=== PATIENT | female | born 1960 | race African-American/Black ===

== ENCOUNTER 2018-05-20 05:48 | Inpatient (IN) | payer BC ==
[2018-05-18 18:35] VITALS: Ht 181.6 cm; Wt 109.1 kg
[2018-05-20] VITALS (25 sets, daily range): BP systolic 109–149; BP diastolic 56–97; PULSE 75–102; RESP 11–23
[~2018-05-20] VITALS: Ht 181.6 cm; Wt 109.1 kg
[2018-05-20] MEDS ORDERED: ACETAMINOPHEN 500 MG TAB PO ONE (06:00)
[2018-05-20] MEDS ORDERED: LANSOPRAZOLE 30 MG CAP PO ONE (06:00)
[2018-05-20] MEDS ORDERED: TRANEXAMIC ACID 1GM/100ML(PMX) 100 ML INTRA-OP X1 IVPB ONE (06:00)
[2018-05-20] MEDS ORDERED: LACTATED RINGER'S 1,000 ML IV* SCH (06:00)
[2018-05-20] MEDS ORDERED: ACETAMINOPHEN 1000MG/100ML IV 100 ML IVPB ONE (06:00)
[2018-05-20] MEDS ORDERED: oxyCODONE (CR) 10 MG TAB [oxyCONTIN] PO ONE (06:00)
[2018-05-20] MEDS ORDERED: TRANEXAMIC ACID 1GM/100ML(PMX) 100 ML PRE-OP X1 IVPB ONE (06:00)
[2018-05-20] MEDS ORDERED: ONDANSETRON 4 MG INJ IV ONE (06:00)
[2018-05-20] MEDS ORDERED: DEXAMETHASONE 4 MG/ML 1 ML INJ IV ONE (06:00)
[2018-05-20] MEDS ORDERED: VANCOMYCIN 1 GM 250 ML IVPB ONE (06:19)
--- NOTE | 2018-05-20 06:24 | HPN ---
Date/Time of Note Date/Time of Note DATE: 05/20/18 TIME: 06:24 Interval H&P Admission Note Pt. seen H&P reviewed: No system changes LYUDMILA PAIGE MD May 20, 2018 06:24
[2018-05-20] MEDS ORDERED: HYDR25TA6 PO (06:55)
[2018-05-20] MEDS ORDERED: BACITRACIN 50000 UNITS INJ ONE (07:03)
[2018-05-20] MEDS ORDERED: POLYMYXIN B 500000 UNIT INJ ONE (07:05)
--- NOTE | 2018-05-20 07:21 | PREAC ---
Date/Time of Note Date/Time of Note DATE: 05/20/18 TIME: 07:20 Anesthesia Eval and Record Evaluation Time Pre-Procedure Interview DATE: 05/20/18 TIME: 07:20 Age 57 Sex female NPO: 8 hrs Preoperative diagnosis RIGHT HIP PRIMARY OSTEOARTHRITIS Planned procedure RIGHT GABY Past Medical History Past Medical History: Includes Cardio: HTN GI: Obesity Surgery & Anesthesia Issues No known issue Meds Anticoagulation: No Beta Dallin within 24 hr: No Reason Beta Dallin not given: Pt. not on B-Dallin Reported Medications Hydrochlorothiazide* (Hydrochlorothiazide*) 25 Mg Tab, 25 MG PO DAILY, #30 TAB 05/20/18 Current Medications Lactated Ringer's 1,000 ml @ 125 mls/hr Q8H IV* Last administered on 05/20/18at 06:31; Admin Dose 125 MLS/HR; Start 05/20/18 at 06:00; Stop 05/20/18 at 13:59 Ropivacaine/ Morphine Sulfate/ Clonidine/ Epinephrine/ Ketorolac Tromethamine/ Vancomycin HCl/ Sodium Chloride INTRA-OP INJ ; Start 05/20/18 at 13:00 Vancomycin HCl 250 ml @ 125 mls/hr ONCE ONCE IVPB Last administered on 05/20/18at 06:31; Admin Dose 125 MLS/HR; Start 05/20/18 at 06:19; Stop 05/20/18 at 08:18 Meds reviewed: Yes Allergies Coded Allergies: Penicillins (Verified Allergy, Unknown, 05/19/18) Allergies Reviewed: Yes Labs/Studies Labs Reviewed: Reviewed by anesthesiologist test: N/A Studies: ECG (SR @ 63 BPM), CXR (NAPD) Pre-procedure Exam Last vitals Vital Signs Date Temp Pulse Resp B/P (MAP) Pulse Ox O2 O2 Flow FiO2 Time Delivery Rate 05/20/18 96.8 83 18 144/97 98 Room Air 06:44 (113) Airway: Adequate mouth opening, Adequate thyromental dist Mallampati: Mallampati II Teeth: Normal Lung: Normal Heart: Normal ASA Physical Status ASA physical status: 2 Emergency: None Planned Anesthetic General/MAC: ETT Neuraxial: Spinal Planned Pain Management Parenteral pain med Pre-operative Attestations Prior to commencing anesthesia and surgery, the patient was re-evaluated, there was verification of: *The patient's identity *The results of appropriate recent lab work and preoperative vital signs *The above evaluation not changing prior to induction *Anesthetic plan, risk benefits, alternative and complications discussed with patient/family; questions answered; patient/family understands, accepts and wishes to proceed. David Alvarez M.D. May 20, 2018 07:21
[2018-05-20] MEDS ORDERED: ROCURONIUM 50 MG INJ ONE (07:23)
[2018-05-20] MEDS ORDERED: PROPOFOL 20 ML ONE (07:23)
[2018-05-20] MEDS ORDERED: GLYCOPYRROLATE 0.4 MG INJ ONE (07:23)
[2018-05-20] MEDS ORDERED: CEFAZOLIN 1 GM INJ ONE (07:23)
[2018-05-20] MEDS ORDERED: DEXAMETHASONE 4 MG/ML 5 ML INJ ONE (07:24)
[2018-05-20] MEDS ORDERED: FENTAnyl 50 MCG/ML VIAL ONE (07:24)
[2018-05-20] MEDS ORDERED: ONDANSETRON 4 MG INJ ONE (07:24)
[2018-05-20] MEDS ORDERED: MIDAZOLAM 1 MG/ML 2 ML INJ ONE (07:24)
[2018-05-20] MEDS ORDERED: morphine SULFATE/PF (10 MG/10 ML) INJ ONE (07:27)
[2018-05-20] MEDS ORDERED: HYDROmorphONE 0.5 MG/0.5 ML SYG IV PRN ×2 (08:30)
[2018-05-20] MEDS ORDERED: NALBUPHINE HCL (10 MG/1 ML) INJ IV PRN (08:30)
[2018-05-20] MEDS ORDERED: NALOXONE (0.4 MG/ML) INJ IV PRN (08:30)
[2018-05-20] MEDS ORDERED: LABETALOL HCL 20MG INJ IV PRN (08:30)
[2018-05-20] MEDS ORDERED: MIDAZOLAM 1 MG/ML 2 ML INJ IV PRN (08:30)
[2018-05-20] MEDS ORDERED: ONDANSETRON 4 MG INJ IV PRN ×2 (08:30)
[2018-05-20] MEDS ORDERED: ALBUTEROL 0.083% (NEB) 2.5 MG/3 ML AMP HHN PRN (08:30)
[2018-05-20] MEDS ORDERED: FENTAnyl 50 MCG/ML VIAL IV PRN ×3 (08:30)
[2018-05-20] MEDS ORDERED: DIPHENHYDRAMINE 50 MG INJ IV PRN ×2 (08:30)
[2018-05-20] MEDS ORDERED: HYDROmorphONE 1 MG/5 ML IV SYRINGE IV PRN ×3 (08:30)
[2018-05-20] MEDS ORDERED: EPHEDrine SULFATE 50 MG/5 ML SYG IV PRN (08:30)
[2018-05-20] MEDS ORDERED: IPRATROPIUM (NEB) 0.5 MG/2.5 ML AMP HHN PRN (08:30)
[2018-05-20] MEDS ORDERED: hydrALAzine 20 MG INJ IV PRN (08:30)
[2018-05-20] MEDS ORDERED: TRIMETHOBENZAMIDE 100 MG/ML VIAL IM PRN ×2 (08:30)
[2018-05-20] MEDS ORDERED: MEPERIDINE 25 MG INJ IV PRN (08:30)
--- NOTE | 2018-05-20 10:17 | SIPON ---
Date/Time of Note Date/Time of Note DATE: 05/20/18 TIME: 10:16 Operative Report Preoperative Diagnosis Right Hip Osteoarthritis Postoperative Diagnosis Same Operation/Procedure Performed Right Total Hip Arthroplasty Surgeon Azucena Paige MD virtual assistant for advertisers Jonn Alejandra Second assist: SUNNI GRUBBS Anesthesia: spinal Estimated blood loss: other Transfusion Required none Specimen bone Grafts/Implants none Complications none AZUCENA PAIGE MD May 20, 2018 10:17
--- NOTE | 2018-05-20 10:26 | OPR ---
Date/Time of Note Date/Time of Note DATE: 05/20/18 TIME: 10:23 Operative Report Free Text/Dictation DATE OF OPERATION: May 20, 2018 PREOPERATIVE DIAGNOSIS: Right hip osteoarthritis. POSTOPERATIVE DIAGNOSIS: Right hip osteoarthritis. PROCEDURES PERFORMED: 1. Right total hip arthroplasty. CPT code 13374. 2. Computer assisted navigational procedure, CPT code 59670. 3. Interpretation of AP Pelvis x-ray. 4. Interpretation of right hip, 2 views. SURGEON: Lyudmila Paige. DISTRICT SUPERVISOR: 1. FRANKIE Bailon 2. Jonn Alejandra. ANESTHESIOLOGIST: Dr. Alvarez ANESTHESIA: Spinal ESTIMATED BLOOD LOSS: 300 mL. COMPLICATIONS: None. SPECIMENS: Resected bone. DISPOSITION: PACU in stable condition. IMPLANT USED: A DePuy Actis size 3 stem, 32/+1 delta ceramic femoral head, 48 mm Pointblank Cup, 32 mm liner COMPLICATIONS: None. DISPOSITION: To PACU in stable condition. INDICATION FOR PROCEDURE: This is an 57 year-old female with endstage osteoarthritis of the right hip who had failed nonoperative management. Risks, benefits, alternatives of surgical intervention were discussed with the patient and informed consent was obtained. The risks of surgery include but are not limited to infection, deep venous thrombosis, pulmonary embolism, leg length discrepancy, fracture, damage to neur ovascular structures requiring repair, loosening of the prosthesis, wear of prosthesis, need for revision surgery, heart attack, stroke, need for blood transfusion, risks associated with anesthesia and even . DESCRIPTION OF PROCEDURE: The patient was met in the preoperative suite and the correct operative site was confirmed and marked. Patient was then brought into operating room. After induction of general anesthesia, the patient was placed in the supine position on the table. The right lower extremity was prepped and draped in the usual sterile fashion. Before starting, a timeout was taken to identify the correct operative site, the patients name and medical record number and to confirm the preoperative antibiotics consisting of 1 gram of IV Ancef, along with 1 gram of tranexamic acid were administered. At this point, an 8 cm incision was made approximately 2 cm lateral and 1 cm distal to the ASIS. The incision was carried down to the fascia. The fascia was then incised. Then, 2 Allis clamps were placed. The interval was then bluntly developed and the tensor fascia cate was then retracted laterally. The lateral circumflex vessels were identified and coagulated. The anterior capsule was then visualized and a capsulotomy was performed. At this point, markings were made for the napkin ring osteotomy of the femoral neck. Using the saw the initial osteotomy was then made and completed with the use of an osteotome. A Rustam was then used to remove the napkin ring and a corkscrew was then placed in the femoral head and the head was then removed. The head was sized to 47 mm. Sequential reaming was begun with a 43 mm reamer, going up to a 47 mm reamer. A trial 48 mm cup was then impacted and the radlink was then used to determine the appropriate anteversion and abduction of the cup. The cup was noted to be in approximately 46 degrees of inclination, and 20 degrees of anteversion. The trial was then removed. The appropriate size cup was then placed and again the radlink was used to determine the inclination and anteversion, and was noted be unchanged. The 32 mm liner was then impacted into place and the final acetabular x-rays were taken which again demonstrated the cup to be in appropriate abduction and anteversion. At this point, the femoral lift was then used and the leg was then placed in external rotation, extension, and adduction. Retractors were placed and the femoral releases were performed using a box osteotome followed by a canal finder. Sequential broaching was begun with a 0 broach going up to a size 3 broach. The trial 3 mm standard offset stem along with a 32/+1 trial head and neck were placed. The hip was then reduced and taken through range of motion, noted to be stable in extension and external rotation of up to 110 degrees. AP x-rays of the pelvis and right hip, 2 view x-rays were taken. The x-rays demonstrated the prosthesis to be in the correct position with equal leg lengths. The trial components were then removed. The appropriate sized components were then placed. The hip was again reduced with unchanged stability and equal leg lengths and no fractures were seen. The hip was again taken through range of motion and noted to be stable to extension and external rotation. The wound was then thoroughly irrigated. The capsule and the fascia were closed using #1 Stratafix. The subcutaneous tissue was closed using 2-0 Vicryl and the skin with 4-0 Monocryl in subcuticular fashion and Steri-Strips were applied. There were no complications. Patient was awakened and taken to postoperative care unit in stable condition. Prior to transfer, the patient was noted to have equal leg lengths and a palpable dorsalis pedis pulse. POSTOPERATIVE CARE: Patient will be weightbearing as tolerated. Patient will work with physical therapy, and receive multimodal pain management.. Patient will receive two additional doses of IV Ancef along with aspirin 81 mg p.o. b.i.d. for 6 weeks. Patient will have SCDs while in the hospital. Upon discharge, patient will follow up in my office within 2 weeks postoperatively. LYUDMILA PAIGE MD May 20, 2018 10:26
[2018-05-20] MEDS ORDERED: HIP PAIN COCKTAIL VANCO INJ SCH ×7 (13:00)
[2018-05-20] MEDS ORDERED: traMADol 50 MG TAB PO PRN (14:00)
[2018-05-20] MEDS: LACTATED RINGER'S 1,000 ML IV SCH ×2 (14:00→16:00)
[2018-05-20] MEDS ORDERED: HYDROCODONE/APAP (5/325) TAB PO PRN (14:00)
[2018-05-20] MEDS ORDERED: KETOROLAC 30 MG INJ IM PRN (14:00)
[2018-05-20] MEDS: ASPIRIN (EC) 81 MG TAB PO SCH ×2 (14:00→21:37)
--- NOTE | 2018-05-20 14:42 | CONS ---
Assessment/Plan Assessment/Plan Assessment/Plan (Daily) Assessment and plan: 57-year-old female status post right hip arthroplasty secondary to end-stage osteoarthritis of the right hip, prior history of hypertension. #Right hip osteoarthritis: Again status post right hip total arthroplasty which occurred earlier today -Continue pain control medications as ordered by primary team, physical therapy, labs -Follow-up post operative recommendations of orthopedic surgery team # HTN -blood pressure stable: -Monitor for now, consider restarting patient's home p.o. hydralazine medication in the next 24 hours He will continue to follow along with you. Consultation Date/Type/Reason Admit Date/Time May 20, 2018 at 05:48 Date/Time of Note DATE: 05/20/18 TIME: 14:40 Hx of Present Illness 57-year-old female past medical history of end-stage osteoarthritis of the right hip, hypertension, who was brought in for elective procedure for right hip replacement. Patient underwent procedure earlier today and is presently out of recovery and on the medical surgical unit. Apparently she had failed outpatient treatment for her end-stage osteoarthritis of her right hip hence the surgery was performed earlier today. Presently denies any upper or lower GI bleeding, nausea vomiting, fever chills, diarrhea constipation, chest pain or shortness of breath. Past Medical History Home Meds Reported Medications Hydrochlorothiazide* (Hydrochlorothiazide*) 25 Mg Tab, 25 MG PO DAILY, #30 TAB 05/20/18 Medications Current Medications Ropivacaine/ Morphine Sulfate/ Clonidine/ Epinephrine/ Ketorolac Tromethamine/ Vancomycin HCl/ Sodium Chloride INTRA-OP INJ ; Start 05/20/18 at 13:00 Hydromorphone HCl (Dilaudid) 0.2 mg PACU PRN IV MILD PAIN 1-3; Start 05/20/18 at 08:30; Stop 05/20/18 at 15:00 Hydromorphone HCl (Dilaudid) 0.4 mg PACU PRN IV MOD PAIN 4-6; Start 05/20/18 at 08:30; Stop 05/20/18 at 15:00 Hydromorphone HCl (Dilaudid) 0.6 mg PACU PRN IV SEVERE PAIN 7-10; Start 05/20/18 at 08:30; Stop 05/20/18 at 15:00 Fentanyl (Sublimaze) 25 mcg PACU ORDER PRN IV MILD PAIN 1-3; Start 05/20/18 at 08:30; Stop 05/20/18 at 15:00 Fentanyl (Sublimaze) 50 mcg PACU ORDER PRN IV MOD PAIN 4-6; Start 05/20/18 at 08:30; Stop 05/20/18 at 15:00 Fentanyl (Sublimaze) 75 mcg PACU ORDER PRN IV SEVERE PAIN 7-10; Start 05/20/18 at 08:30; Stop 05/20/18 at 15:00 Ondansetron HCl (Zofran Inj) 4 mg PACU ORDER PRN IV NAUSEA/VOMITING Last administered on 05/20/18at 12:37; Admin Dose 4 MG; Start 05/20/18 at 08:30; Stop 05/20/18 at 15:00 Trimethobenzamide HCl (Tigan) 200 mg PACU ORDER PRN IM NAUSEA/VOMITING; Start 05/20/18 at 08:30; Stop 05/20/18 at 15:00 Labetalol HCl (Labetalol) 5 mg PACU ORDER PRN IV HIGH BLOOD PRESSURE; Start 05/20/18 at 08:30; Stop 05/20/18 at 15:00 Hydralazine HCl (Apresoline) 5 mg PACU ORDER PRN IV HIGH BLOOD PRESSURE; Start 05/20/18 at 08:30; Stop 05/20/18 at 15:00 Ephedrine Sulfate 5 mg PACU ORDER PRN IV BLOOD PRESSURE SUPPORT; Start 05/20/18 at 08:30; Stop 05/20/18 at 15:00 Albuterol (Proventil 0.083% (Neb)) 2.5 mg PACU ORDER PRN HHN .WHEEZING; Start 05/20/18 at 08:30; Stop 05/20/18 at 15:00 Ipratropium Leslie (Atrovent 0.02% (Neb)) 0.5 mg PACU ORDER PRN HHN .WHEEZING; Start 05/20/18 at 08:30; Stop 05/20/18 at 15:00 Meperidine HCl (Demerol) 25 mg PACU ORDER PRN IV .RIGORS; Start 05/20/18 at 08:30; Stop 05/20/18 at 15:00 Diphenhydramine HCl (Benadryl) 25 mg PACU ORDER PRN IV .PRURITUS; Start 05/20/18 at 08:30; Stop 05/20/18 at 15:00 Midazolam HCl (Versed) 0.5 mg PACU ORDER PRN IV .ANXIETY; Start 05/20/18 at 08:30; Stop 05/20/18 at 15:00 Hydromorphone HCl (Dilaudid) 0.2 mg Q2H PRN IV .PAIN 1-5; Start 05/20/18 at 08:30 Hydromorphone HCl (Dilaudid) 0.4 mg Q2H PRN IV .PAIN 6-10; Start 05/20/18 at 08:30 Diphenhydramine HCl (Benadryl) 25 mg Q4H PRN IV .PRURITUS; Start 05/20/18 at 08:30 Nalbuphine HCl (Nubain) 10 mg Q4H PRN IV .PRURITUS; Start 05/20/18 at 08:30 Ondansetron HCl (Zofran Inj) 4 mg Q6H PRN IV .NAUSEA/VOMITING; Start 05/20/18 at 08:30 Trimethobenzamide HCl (Tigan) 200 mg Q6H PRN IM .NAUSEA/VOMITING; Start 05/20/18 at 08:30 Naloxone HCl (Narcan) 0.2 mg Q2M PRN IV .RESP RATE; Start 05/20/18 at 08:30 Miscellaneous Information (* Miscellaneous Pharmacy Order) DURAMORPH: 0.2 MG SPI... GIVEN NEURAXIAL XX ; Start 05/20/18 at 08:30 Vancomycin HCl 250 ml @ 125 mls/hr Q12 IVPB ; Start 05/20/18 at 13:30; Stop 05/20/18 at 22:59 Aspirin (Halfprin) 81 mg BID PO ; Start 05/20/18 at 14:00 Lactated Ringer's 1,000 ml @ 100 mls/hr Q10H IV ; Start 05/20/18 at 14:00 Acetaminophen/ Hydrocodone Bitart ([place] (5/325)) 2 tab Q6H PRN PO MODERATE PAIN LEVEL 4-6; Start 05/20/18 at 14:00 Ketorolac Tromethamine (Toradol) 30 mg Q6H PRN IM PAIN LEVEL 1-3; Start 05/20/18 at 14:00; Stop 05/23/18 at 13:59 Tramadol HCl (Ultram) 50 mg Q8H PRN PO MODERATE PAIN LEVEL 4-6; Start 05/20/18 at 14:00 Celecoxib (Celebrex) 100 mg TID PO ; Start 05/20/18 at 21:00 Allergies: Coded Allergies: Penicillins (Verified Allergy, Unknown, 05/19/18) Past Surgical History Past Surgical Hx: other (D&C x2) Family History Significant Family History: no pertinent family hx Social History Smoking Status: Current every day smoker ([place]) Exam/Review of Systems Exam Vitals Vital Signs Date Temp Pulse Resp B/P (MAP) Pulse Ox O2 O2 Flow FiO2 Time Delivery Rate 05/20/18 86 15 119/70 100 Nasal 3.0 11:38 (86) Cannula 05/20/18 98.0 10:52 Exam Gen Appearance: Lying in bed HEENT: Normocephalic NECK: supple Cardiovascular: S1, S2 heard Lungs: Clear to auscultation bilaterally Abdomen: No rebound or guarding, nontender, nondistended, soft Extremities: Decreased range of motion right hip Neuro: No focal deficits Medications Medication Current Medications Ropivacaine/ Morphine Sulfate/ Clonidine/ Epinephrine/ Ketorolac Tromethamine/ Vancomycin HCl/ Sodium Chloride INTRA-OP INJ ; Start 05/20/18 at 13:00 Hydromorphone HCl (Dilaudid) 0.2 mg PACU PRN IV MILD PAIN 1-3; Start 05/20/18 at 08:30; Stop 05/20/18 at 15:00 Hydromorphone HCl (Dilaudid) 0.4 mg PACU PRN IV MOD PAIN 4-6; Start 05/20/18 at 08:30; Stop 05/20/18 at 15:00 Hydromorphone HCl (Dilaudid) 0.6 mg PACU PRN IV SEVERE PAIN 7-10; Start 05/20/18 at 08:30; Stop 05/20/18 at 15:00 Fentanyl (Sublimaze) 25 mcg PACU ORDER PRN IV MILD PAIN 1-3; Start 05/20/18 at 08:30; Stop 05/20/18 at 15:00 Fentanyl (Sublimaze) 50 mcg PACU ORDER PRN IV MOD PAIN 4-6; Start 05/20/18 at 08:30; Stop 05/20/18 at 15:00 Fentanyl (Sublimaze) 75 mcg PACU ORDER PRN IV SEVERE PAIN 7-10; Start 05/20/18 at 08:30; Stop 05/20/18 at 15:00 Ondansetron HCl (Zofran Inj) 4 mg PACU ORDER PRN IV NAUSEA/VOMITING Last a dministered on 05/20/18at 12:37; Admin Dose 4 MG; Start 05/20/18 at 08:30; Stop 05/20/18 at 15:00 Trimethobenzamide HCl (Tigan) 200 mg PACU ORDER PRN IM NAUSEA/VOMITING; Start 05/20/18 at 08:30; Stop 05/20/18 at 15:00 Labetalol HCl (Labetalol) 5 mg PACU ORDER PRN IV HIGH BLOOD PRESSURE; Start 05/20/18 at 08:30; Stop 05/20/18 at 15:00 Hydralazine HCl (Apresoline) 5 mg PACU ORDER PRN IV HIGH BLOOD PRESSURE; Start 05/20/18 at 08:30; Stop 05/20/18 at 15:00 Ephedrine Sulfate 5 mg PACU ORDER PRN IV BLOOD PRESSURE SUPPORT; Start 05/20/18 at 08:30; Stop 05/20/18 at 15:00 Albuterol (Proventil 0.083% (Neb)) 2.5 mg PACU ORDER PRN HHN .WHEEZING; Start 05/20/18 at 08:30; Stop 05/20/18 at 15:00 Ipratropium Leslie (Atrovent 0.02% (Neb)) 0.5 mg PACU ORDER PRN HHN .WHEEZING; Start 05/20/18 at 08:30; Stop 05/20/18 at 15:00 Meperidine HCl (Demerol) 25 mg PACU ORDER PRN IV .RIGORS; Start 05/20/18 at 08: 30; Stop 05/20/18 at 15:00 Diphenhydramine HCl (Benadryl) 25 mg PACU ORDER PRN IV .PRURITUS; Start 05/20/18 at 08:30; Stop 05/20/18 at 15:00 Midazolam HCl (Versed) 0.5 mg PACU ORDER PRN IV .ANXIETY; Start 05/20/18 at 08:30; Stop 05/20/18 at 15:00 Hydromorphone HCl (Dilaudid) 0.2 mg Q2H PRN IV .PAIN 1-5; Start 05/20/18 at 08:30 Hydromorphone HCl (Dilaudid) 0.4 mg Q2H PRN IV .PAIN 6-10; Start 05/20/18 at 08:30 Diphenhydramine HCl (Benadryl) 25 mg Q4H PRN IV .PRURITUS; Start 05/20/18 at 08:30 Nalbuphine HCl (Nubain) 10 mg Q4H PRN IV .PRURITUS; Start 05/20/18 at 08:30 Ondansetron HCl (Zofran Inj) 4 mg Q6H PRN IV .NAUSEA/VOMITING; Start 05/20/18 at 08:30 Trimethobenzamide HCl (Tigan) 200 mg Q6H PRN IM .NAUSEA/VOMITING; Start 05/20/18 at 08:30 Naloxone HCl (Narcan) 0.2 mg Q2M PRN IV .RESP RATE; Start 05/20/18 at 08:30 Miscellaneous Information (* Miscellaneous Pharmacy Order) DURAMORPH: 0.2 MG SPI... GIVEN NEURAXIAL XX ; Start 05/20/18 at 08:30 Vancomycin HCl 250 ml @ 125 mls/hr Q12 IVPB ; Start 05/20/18 at 13:30; Stop 05/20/18 at 22:59 Aspirin (Halfprin) 81 mg BID PO ; Start 05/20/18 at 14:00 Lactated Ringer's 1,000 ml @ 100 mls/hr Q10H IV ; Start 05/20/18 at 14:00 Acetaminophen/ Hydrocodone Bitart ([place] (5/325)) 2 tab Q6H PRN PO MODERATE PAIN LEVEL 4-6; Start 05/20/18 at 14:00 Ketorolac Tromethamine (Toradol) 30 mg Q6H PRN IM PAIN LEVEL 1-3; Start 05/20/18 at 14:00; Stop 05/23/18 at 13:59 Tramadol HCl (Ultram) 50 mg Q8H PRN PO MODERATE PAIN LEVEL 4-6; Start 05/20/18 at 14:00 Celecoxib (Celebrex) 100 mg TID PO ; Start 05/20/18 at 21:00 JES PETERSEN May 20, 2018 14:42
[2018-05-20] MEDS: VANCOMYCIN 1 GM (PMX) 250 ML IVPB SCH ×2 (16:00→21:38)
[2018-05-20] MEDS: CELECOXIB 100 MG CAP PO SCH (21:38)
[2018-05-21] VITALS: BP 131/75; PULSE 82; RESP 18
[2018-05-21 05:00] VITALS: BP 124/71; PULSE 78; RESP 18
[2018-05-21] MEDS: CELECOXIB 100 MG CAP PO SCH ×2 (08:28→12:58)
[2018-05-21] MEDS: ASPIRIN (EC) 81 MG TAB PO SCH (08:28)
[2018-05-21] MEDS: LACTATED RINGER'S 1,000 ML IV SCH (10:00)
[2018-05-21] MEDS ORDERED: ASPI-1044 PO (12:59)
[2018-05-21] MEDS ORDERED: HYDR-3601 PO (12:59)
--- NOTE | 2018-05-21 13:58 | PAC ---
Date/Time of Note Date/Time of Note DATE: 05/21/18 TIME: 13:58 Post-Anesthesia Notes Post-Anesthesia Note Last documented vital signs Vital Signs Date Temp Pulse Resp B/P (MAP) Pulse Ox O2 O2 Flow FiO2 Time Delivery Rate 05/21/18 97.8 78 18 124/71 96 Room Air 05:00 (88) 05/20/18 3.0 12:38 Activity: WNL Respiratory function: WNL Cardiovascular function: WNL Mental status: Baseline Pain reasonably controlled: Yes Hydration appropriate: Yes Nausea/Vomiting absent: Yes David Alvarez M.D. May 21, 2018 13:58
== END 2018-05-21 15:02 | disposition home health service (06) | DRG 470 ==
LOC: REC 05:48 → MS1 13:54
PROVIDERS: ADMIT Orthopaedic Surgery Adult Reconstructive Orthopaedic Surgery; ATTEND Orthopaedic Surgery Adult Reconstructive Orthopaedic Surgery
PROC: 8E0YXBF Computer Assisted Procedure of Lower Extremity, With Fluoroscopy (ICD-10-PCS; 2018-05-20)
PROC: 0SR904A Replacement of Right Hip Joint with Ceramic on Polyethylene Synthetic Substitute, Uncemented, Open Approach (ICD-10-PCS; principal; 2018-05-20 07:30)
DX: M16.11 Unilateral primary osteoarthritis, right hip (principal); I10 Essential (primary) hypertension; E66.9 Obesity, unspecified; Z68.33 Body mass index [BMI] 33.0-33.9, adult
CPT/HCPCS: 72170; 73500; 73530; 88304; 88311; 97116; 97161; 97530; C1776; J0131; J0171; J0690; J0735; J1100; J1200; J1885; J2250; J2274; J2405; J2795; J3010; J3370; J7120